=== PATIENT | male | born 1955 | race Caucasian/White ===

== ENCOUNTER 2017-05-07 13:00 | Emergency (ER) | payer MEDICARE, OTHER ==
[~2017-05-07] VITALS: Ht 172.7 cm; Wt 93.0 kg
[~2017-05-07 13:00] MED LIST: ALBU6.7H INH; APIX5TAB PO; ATOR80TA45 PO; AZIT250T3 PO; BLOOD GLUCOSE M1 KIT; BLOOD GLUCOSE T1 TES; ESCI10TA PO; FURO20TA PO; K-EF25TA; LISI10TA3 PO; METF500T PO; METO50TA PO; VITA20004 PO; ZOSTINJ SQ
[2017-05-07 13:09] VITALS: BP 158/93; PULSE 62; RESP 16; TEMP 98.3; O2SAT 97
[2017-05-07] MEDS ORDERED: RESP: ALBUTEROL 2.5 MG/IPRATROPIUM 0.5 MG NEB (SCH) INH ONE (13:30)
[2017-05-07] MEDS ORDERED: predniSONE 20 MG TAB PO ONE (13:30)
--- NOTE | 2017-05-07 13:41 | PD ---
HPI Chief Complaint: Cold / Flu Symptoms Time Seen by Provider: 13:16 Travel History International Travel<30 days: No Contact w/Intl Traveler<30days: No Traveled to known affect area: No History of Present Illness HPI This is a 62-year-old male here with cough and wheezing 4 days. Patient has history COPD. He denies chest pain. Reports occasional mild shortness of breath with coughing and wheezing episodes. He has had similar episodes in the past with rhonchi/pneumonia. Denies fever or chills. Symptom severity is mild to moderate. No aggravating or alleviating factors. PFSH Past Medical History Hx Anticoagulant Therapy: No (ASPIRIN) Heart Rhythm Problems: Yes Cardiovascular Problems: Yes (PACEMAKER) COPD: Yes Diabetes: Yes Hypertension: Yes Respiratory: Yes (COPD) Immunizations Current: Yes Past Surgical History Cardiac Surgery: Yes (pacemaker) Tonsillectomy: Yes Other Surgery: Yes (hernia) Social History Alcohol Use: Yes (occ) Tobacco Use: No Substance Use: No Allergies-Medications (Allergen,Severity, Reaction): Coded Allergies: No Known Allergies (Verified Adverse Reaction, Unknown, 05/07/17) Reported Meds & Prescriptions Reported Meds & Active Scripts Active Azithromycin 250 Mg Tab 250 Mg PO DIRECTED Take 2 tabs (500 mg) on day 1 then 1 tab daily x 4 days. Metformin (Metformin HCl) 500 Mg Tab 1,000 Mg PO BID With a meal Escitalopram (Escitalopram Oxalate) 10 Mg Tab 10 Mg PO DAILY Vitamin B-12 ER (Cyanocobalamin) 2,000 Mcg Tab 2,000 Mcg PO DAILY Reported Lisinopril 10 Mg Tab 10 Mg PO DAILY K-Effervescent (Potassium Bicarbonate) 25 Meq Tab Eliquis (Apixaban) 5 Mg Tab 5 Mg PO BID Metoprolol Tartrate 50 Mg Tab 50 Mg PO BID Furosemide 20 Mg Tab 20 Mg PO DAILY Atorvastatin (Atorvastatin Calcium) 80 Mg Tab 80 Mg PO HS Review of Systems Except as stated in HPI: all other systems reviewed are Neg General / Constitutional: No: Fever Eyes: No: Visual changes HENT: No: Headaches Cardiovascular: No: Chest Pain or Discomfort Respiratory: No: Shortness of Breath Gastrointestinal: No: Abdominal Pain Genitourinary: No: Dysuria Physical Exam Narrative GENERAL: Alert and well-appearing 62-year-old male. Nontoxic appearing. No distress. SKIN: Warm and dry. HEAD: Normocephalic. EYES: No injection or drainage. NECK: Supple CARDIOVASCULAR: Regular rate and rhythm. No murmur. RESPIRATORY: Mildly decreased breath sounds bilaterally. Breath sounds equal bilaterally. No accessory muscle use. GASTROINTESTINAL: Abdomen soft, non-tender, nondistended. MUSCULOSKELETAL: No cyanosis, or edema. BACK: Nontender without obvious deformity. No CVA tenderness. Data Data Last Documented VS Vital Signs Date Time Temp Pulse Resp B/P (MAP) Pulse Ox O2 Delivery O2 Flow Rate FiO2 05/07/17 13:49 18 05/07/17 13:09 98.3 62 158/93 (114) 97 Orders Orders Albuterol-Ipratropium Neb (Duoneb Neb) (05/07/17 13:30) Prednisone (Deltasone) (05/07/17 13:30) MDM Medical Decision Making Medical Screen Exam Complete: Yes Emergency Medical Condition: Yes Differential Diagnosis COPD exacerbation, pneumonia, bronchitis Narrative Course This is a 62-year-old male here with productive cough and wheezing 4 days. He is nontoxic-appearing. He was given steroids and DuoNeb breathing treatment. On reassessment reports symptom improvement. He is stable and ready for discharge. Diagnosis Primary Impression: COPD (chronic obstructive pulmonary disease) with acute bronchitis Referrals: Primary Care Physician Scripts Albuterol 8.5 GM Inh (Proair Hfa 8.5 GM Inh) 90 Mcg/Act Aer 2 PUFF INH Q4-6H Y for SHORTNESS OF BREATH, #1 INHALER 0 Refills 108 mcg/actuation Prov: Char Brooks 05/07/17 Prednisone (Prednisone) 20 Mg Tab 40 MG PO DIRECTED for 4 Days, TAB 0 Refills Prov: Char Brooks 05/07/17 Levofloxacin (Levaquin) 500 Mg Tablet 500 MG PO DAILY for Infection for 7 Days, #7 TAB 0 Refills Prov: Char Brooks 05/07/17 Disposition: 01 DISCHARGE HOME Condition: Stable Char Brooks May 07, 2017 13:41
[2017-05-07] MEDS ORDERED: ALBUAER3 INH (14:26)
[2017-05-07] MEDS ORDERED: PRED20 PO (14:26)
[2017-05-07] MEDS ORDERED: LEVA500T33 PO (14:26)
== END 2017-05-07 14:37 | disposition home or self-care (01) ==
LOC: PHEFT 13:00
DX: J44.9 Chronic obstructive pulmonary disease, unspecified (principal); J20.9 Acute bronchitis, unspecified; E11.9 Type 2 diabetes mellitus without complications; I10 Essential (primary) hypertension; Z79.899 Other long term (current) drug therapy
CPT/HCPCS: 94664; 99283; J7512